=== PATIENT | male | born 1960 | race Caucasian/White ===

== ENCOUNTER 2025-06-23 15:02 | Inpatient (IN) | payer MEDICARE, MEDICAID ==
[~2025-06-23] VITALS: Ht 185.4 cm; Wt 97.0 kg
[2025-06-23 15:00] VITALS: RESP 14; O2SAT 98
[2025-06-23] MEDS ORDERED: LOSA-415 PO (15:48)
[2025-06-23] MEDS ORDERED: CLOP75TA33 PO (15:49)
[2025-06-23] MEDS ORDERED: HYDR25TA5 PO (15:49)
[2025-06-23] MEDS ORDERED: GLIP5TAB23 PO (15:50)
[2025-06-23 17:00] VITALS: BP 166/77; PULSE 63; RESP 14; TEMP 98.2; O2SAT 100
[2025-06-23 18:00] VITALS: BP 166/77; PULSE 63; RESP 15; TEMP 98.2; O2SAT 100
[2025-06-23 20:00] VITALS: RESP 15; O2SAT 100
[2025-06-23] MEDS ORDERED: ondansetron/PF 4mg/2ml inj IV PRN (20:50)
[2025-06-23] MEDS ORDERED: HYDROmorphone inj. 0.5 MG/0.5 ML DISP.SYRIN IV PRN (20:50)
[2025-06-23] MEDS ORDERED: potassium Cl 20 mEq SR tablet PO PRN ×2 (20:50)
[2025-06-23] MEDS ORDERED: mag hydrox/Alum hydrox/simeth 30ml oral suspension PO PRN (20:50)
[2025-06-23] MEDS ORDERED: HYDROmorphone/PF 0.2 MG/ML SYRINGE IV PRN (20:50)
[2025-06-23] MEDS ORDERED: metoclopramide 5 mg/ml inj IV PRN (20:50)
[2025-06-23] MEDS ORDERED: magnesium hydroxide 30ml (MOM) UD suspension PO PRN (20:50)
[2025-06-23] MEDS ORDERED: potassium Cl 40MEQ/1/2NS 520ml 520 ML IV PRN (20:50)
[2025-06-23] MEDS ORDERED: magnesium Cl slow-release 64mg tablet PO PRN (20:50)
[2025-06-23] MEDS ORDERED: magnesium sulf-water 4G/100mL 100 ML IV PRN (20:50)
[2025-06-23] MEDS ORDERED: magnesium sulf-water 2g/50mL 50 ML IV PRN (20:50)
[2025-06-23] MEDS ORDERED: DEXTROSE 15 GM of carb/4 tabs (each vial/BOTTLE has 4 tablets) PO PRN ×2 (21:05)
[2025-06-23] MEDS ORDERED: glucagon, human recombinant 1mg kit SUBCUT PRN (21:05)
[2025-06-23] MEDS ORDERED: dextrose 50%-water 50ml dispensing syringe IV PRN ×2 (21:05)
--- NOTE | 2025-06-23 21:27 | RADIOLOGY REPORT ---
CHEST RADIOGRAPH REASON FOR EXAM: Baseline CXR COMPARISON: None TECHNIQUE: One view of the chest is provided FINDINGS: The cardiomediastinal silhouette is within normal limits for technique. There is no focal airspace disease. There is no significant pleural effusion. No acute bony abnormality is identified. IMPRESSION: No radiographic evidence of acute cardiopulmonary process.
[2025-06-23 21:51] LABS: APTT 29 SECONDS (22-32); INR 1.0 INR
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
[2025-06-23 22:00] VITALS: BP 155/73; PULSE 69; RESP 18; TEMP 97.9; O2SAT 97
[2025-06-23] MEDS: metroNIDAZOLE-Flagyl 500mg/NS 100 ML IV SCH (22:38)
[2025-06-23] MEDS: vancomycin/NS 1 GM ADD-VANTAGE 250 ML IV ONE (22:48)
[2025-06-24] VITALS (7 sets, daily range): BP systolic 157–180; BP diastolic 62–84; PULSE 59–66; RESP 14–16; TEMP 97.7–98.6; O2SAT 96–99
[2025-06-24] MEDS: CefTRIAXone/D5W-Rocephin 1gm 50 ML IV SCH (00:23)
[2025-06-24] MEDS: vancomycin/NS 1 GM ADD-VANTAGE 250 ML IV ONE (00:27)
[2025-06-24 05:44] LABS: CHOL/HDL RATIO 3.8 (0.00-4.99); CREATININE 1.20 MG/DL (0.60-1.10); LDL CHOLESTEROL 47 MG/DL (50-100); TOTAL CARBON DIOXIDE 27.4 MMOL/L (24-32); eCRCL 69 ML/MIN; eGFR 61 ML/MIN
[2025-06-24 05:47] LABS: MEAN PLATELET VOLUME 8.7 FL (7.4-10.4); RED CELL DISTRIBUTION WIDTH 13.5 % (11.5-14.5)
[2025-06-24] MEDS: INSULIN LISPRO 100 UNIT/ML INSULN.PEN MULTI-DOSE SQ SCH (07:00)
[2025-06-24 07:26] LABS: LEUKOCYTE ESTERASE ,URINE NEGATIVE (Neg); NITRITES, URINE NEGATIVE (Neg); OCCULT BLOOD,URINE NEGATIVE (Neg)
[2025-06-24 07:45] LABS: UA COLLECTION TYPE NON-SPECIFIED
[2025-06-24 07:48] LABS: SQUAMOUS EPITHELIAL CELL,UR NONE SEEN /LPF (FEW)
[2025-06-24] MEDS: heparin, porcine 5000 units/ml vial SQ SCH (07:53)
[2025-06-24] MEDS: K and/or MAG REPLACEMENT MC SCH (08:00)
[2025-06-24] MEDS: nicotine 14mg patch - 24hr TD SCH (12:10)
--- NOTE | 2025-06-24 12:30 | PROGRESS NOTE- Residence ---
Progress Note - Resident Providers to CC Resident Creating Document: AMITA REDDY, RES ~ Almanza-Non Protocol Almanza Indications Met/Not Met: F/C Indications Not Met Antibiotic Timeout Antibiotic Ordered?: Yes Subjective Patient was seen and examined at bedside. Patient does not complain any pain or redness or discharge from the right big toe wound. Patient denies any other complaints or concerns at the moment. Patient does not want any surgical intervention for now and requested for IV antibiotics. Patient brought CT angio of lower extremity which showed long segment right SFA occlusion with reconstitution of the below-knee popliteal artery and patient is on Plavix 75 mg p.o. daily. PCP: Dr. Jay, [place] Wound Dr: Dr. Paul Vascular Surgeon: DR. Kennedy , IR Objective Vital Signs Date Time Temp Pulse Resp B/P (MAP) Pulse Ox O2 Delivery O2 Flow Rate FiO2 06/24/25 11:00 98.4 59 16 174/84 (114) 96 Room Air Result Diagram: 06/24/25 0513 06/24/25 0508 Awake , alert and oriented to time,place, person,not in distress HEENT: Atraumatic, normocephalic, PERRLA, EOMI, anicteric sclera ; pink conjunctiva, moist mucos membranes Neck: Trachea midline. Supple, normal range of motion, no JVD, no lymphadenopathy Chest and Respiratory: Equal breath sounds bilaterally, no tachypnea, wheezing, ronchi,rubs .Chest wall is symmetric and without deformity. Cardiac: S1, S2 heard,Regular rate and rhythm, no murmurs ,no gallops, no rubs. Abdomen: Soft, No tenderness, No guarding or rigidity, Larsen's sign negative. normal bowel sounds x4 quadrant, no hepatosplenomegaly MSK: Range of motion of all extremities are normal. There is no joint pain or joint swelling or joint erythema. There is no muscle pain or tenderness or swelling. Extremities: warm, well-perfused, No cyanosis, clubbing, 2+ pulses felt Healing wound with callus on plantar surface of left big toe A 1x1 circular open wound with no active discharge. No erythema or redness surrounding the wound. No obvious bony or tendon exposure outside. Neurological: Mental status exam: alert and consciousness, orientation, memory, speech - Cranial nerve test: Cranial nerves II-XII intact. - Motor system: Normal Nutrition, normal tone, Power 5/5, no involuntary movements - Sensory system: Intact - Reflex testing: Biceps, triceps and knee reflexes 2+ - Cerebellar: Normal Skin: Warm and dry Psychiatry: Affect and mood are normal Coagulation Studies Laboratory Tests Test 06/23/25 21:30 Prothrombin Time 10.3 SECONDS (9.0-12.0) INR International Normalized Ratio 1.0 INR Activated Partial Thromboplast Time 29 SECONDS (22-32) Coagulation Comments Counseling Services Smoking & Tobacco Cessation: 3-10 Minutes Plan Plan Right great toe diabetic ulcer Osteomyelitis Right great toe (1 st proximal and distal phalanges of great toe ) -Imaging at [facility]: on 06/14/25, X-ray right foot consistent with cellulitis, no evidence of osteomyelitis, patient was treated with p.o. Augmentin & doxycycline, failed outpatient management and patient returned to [facility] on 06/23/25, underwent MRI which showed osteomyelitis of 1st proximal and distal phalanges of right great toe. Preliminary wound culture shows Enterobacter cloacae and mixed preeti including coagulase-negative staph and Corynebacterium species at [facility] -no leukocytes, lactate and procalcitonin are normal -mildly elevated ESR of 34 -Continue IV vancomycin 1 g q.12h, IV ceftriaxone 1 g Q 24 H and IV Flagyl 500 mg q.12h -Follow up on wound and blood cultures -Wound care was requested -explained the patient about risks and complications of osteomyelitis with comorbidities (possibility of sepsis, osteomyelitis progression to entire leg, risk of total leg amputation, risk of ), patient does not want any surgical interventions for now and requested for long-term IV antibiotics. -Dr. Heaton, ID was consulted, awaiting recommendations(possibly on Thursday) Acute kidney injury Current creatinine 1.2, BUN is 24, B/C is 20, EGFR of 61 Patient received 1L IV NS bolus at [facility] IV NS @ 100 mL/hr Avoid nephrotoxic drugs Follow up on urine lytes Monitor BMP levels PAD s/p left angioplasty in January 2025 Right SFA occlusion Tobacco use disorder Patient is active smoker (pt had cut down smoking to 5-6 cigarettes/day from 1 pack of cigarettes/day) which further impairs wound healing and vascular status Counseled on smoking cessation and advised nicotine patch. LDL is 47 Continue home medication Plavix [address] angio of lower extremity which showed long segment right SFA occlusion . We will consulted Dr. Jiang tomorrow morning Type 2 diabetes mellitus with Peripheral neuropathy Patient takes glipizide at home HB A1c is 6.9 Glycemic control suboptimal, maintain blood glucose 140-180 mg/dL Patient feels drowsy with gabapentin, So does not want any medication for peripheral neuropathy. 75 gms Carb controlled diet Lantus 10 units HS daily Hyperglycemia/hypoglycemia protocol Hypertension Blood pressure is 154/62 Continue home medication hydrochlorothiazide 25 mg and losartan 50 mg p.o. daily History of bipolar disorder Patient states that he does not have any episodes from many years & not taking any medications at home. Code status: DNR/DNI DVT prophylaxis : Heparin Nutrition: Carb Controlled diet Physical therapy: ordered Line/tube: PIV Analgesia/sedation: Tylenol 325 q.6h PRN Disposition: Continue IV antibiotics, follow Infectious Disease recommendations. Resident attestation The above note has been reviewed and supervised by a senior resident PGY2/PGY3 Patient was seen, examined and discussed with the attending physician, Dr. MARK ANTHONY Reddy MD Internal Medicine Resident, PGY 1 Date of Service: Jun 24, 2025 Billing Provider: ARACELI HOPSON MD Common Visit Codes: [id number] INP/OBS CARE(HIGH) AMITA REDDY, RES Jun 24, 2025 12:30 ARACELI HOPSON MD Jul 04, 2025 18:28
[2025-06-24] MEDS: vancomycin/NS 1 GM ADD-VANTAGE 250 ML IV SCH (13:08)
[2025-06-24] MEDS: normal saline 1000ml 1,000 ML IV SCH (15:32)
[2025-06-24] MEDS: hydrALAZINE 20mg/ml inj. IV ONE (17:06)
[2025-06-24 17:37] LABS: CREATININE,URINE RANDOM 61.0 MG/DL; UA UREA RANDOM 463.0 MG/DL; URINE AMPHETAMINE SCREEN NEGATIVE (Neg); URINE BARBITUATE SCREEN NEGATIVE (Neg); URINE BENZODIAZEPINES SCREEN NEGATIVE (Neg); URINE CANNABINOID SCREEN NEGATIVE (Neg); URINE COCAINE SCREEN NEGATIVE (Neg); URINE METHADONE SCREEN NEGATIVE (Neg); URINE OPIATE SCREEN NEGATIVE (Neg); URINE PHENCYCLIDINE SCREEN NEGATIVE (Neg)
[2025-06-24 17:41] LABS: OSMOLALITY UA 493.0 MOSM/K (50-1400)
[2025-06-24] MEDS ORDERED: insulin glargine (Lantus) pen - multi-dose SQ SCH (21:00)
[2025-06-24] MEDS: insulin glargine (Lantus) pen - multi-dose SQ SCH (21:33)
[2025-06-25 06:00] VITALS: BP 175/80; PULSE 68; RESP 14; TEMP 98.1; O2SAT 97
[2025-06-25 06:02] LABS: MEAN PLATELET VOLUME 8.9 FL (7.4-10.4); RED CELL DISTRIBUTION WIDTH 13.2 % (11.5-14.5)
[2025-06-25 06:04] LABS: CREATININE 0.97 MG/DL (0.60-1.10); TOTAL CARBON DIOXIDE 26.6 MMOL/L (24-32); eCRCL 86 ML/MIN; eGFR 78 ML/MIN
[2025-06-25 08:00] VITALS: RESP 18; O2SAT 98
[2025-06-25 10:00] VITALS: BP 157/64; PULSE 65; RESP 15; TEMP 97.6; O2SAT 98
[2025-06-25] MEDS: VANCOMYCIN LEVEL IV ONE (12:30)
[2025-06-25] MEDS ORDERED: iohexol 350 MG/ML 50ML vial IV ONE (13:09)
--- NOTE | 2025-06-25 13:11 | PROGRESS NOTE ---
Progress Note ID Providers to CC ~ Progress Note Progress Note: pt seen and examined-needs further workup KAYLAN MUNSON MD Jun 25, 2025 13:11
[2025-06-25] MEDS ORDERED: metoprolol tartrate 1mg/ml inj IV PRN (13:15)
[2025-06-25] MEDS ORDERED: aminophylline 250mg/10ml inj. IV PRN (13:15)
[2025-06-25] MEDS ORDERED: dextrose 50%-water 50ml dispensing syringe IV PRN ×2 (15:30)
[2025-06-25] MEDS ORDERED: glucagon, human recombinant 1mg kit SUBCUT PRN (15:30)
[2025-06-25] MEDS ORDERED: DEXTROSE 15 GM of carb/4 tabs (each vial/BOTTLE has 4 tablets) PO PRN ×2 (15:30)
--- NOTE | 2025-06-25 15:46 | PROGRESS NOTE- Residence ---
Progress Note - Resident Providers to CC Resident Creating Document: AMITA REDDY, RES ~ Almanza-Non Protocol Almanza Indications Met/Not Met: F/C Indications Not Met Antibiotic Timeout Antibiotic Ordered?: Yes Subjective Patient was seen and examined at bedside. Patient does not complain any pain or redness or discharge from the right big toe wound. Patient denies any other complaints or concerns at the moment. Patient does not want any surgical intervention for osteomyelitis and requested for IV antibiotics. Patient brought CT angio of lower extremity which showed long segment right SFA occlusion with reconstitution of the below-knee popliteal artery and patient is on Plavix [address] Jiang was consulted for bypass graft of right SFA occlusion. PCP: Dr. Jay, Fabian Wound Dr: Dr. Paul Vascular Surgeon: DR. Kennedy , IR Objective Vital Signs Date Time Temp Pulse Resp B/P (MAP) Pulse Ox O2 Delivery O2 Flow Rate FiO2 06/25/25 10:00 97.6 65 15 157/64 (95) 98 Room Air Result Diagram: 06/25/25 0440 06/25/25 1308 Awake , alert and oriented to time,place, person,not in distress HEENT: Atraumatic, normocephalic, PERRLA, EOMI, anicteric sclera ; pink conjunctiva, moist mucos membranes Neck: Trachea midline. Supple, normal range of motion, no JVD, no lymphadenopathy Chest and Respiratory: Equal breath sounds bilaterally, no tachypnea, wheezing, ronchi,rubs .Chest wall is symmetric and without deformity. Cardiac: S1, S2 heard,Regular rate and rhythm, no murmurs ,no gallops, no rubs. Abdomen: Soft, No tenderness, No guarding or rigidity, Larsen's sign negative. normal bowel sounds x4 quadrant, no hepatosplenomegaly MSK: Range of motion of all extremities are normal. There is no joint pain or joint swelling or joint erythema. There is no muscle pain or tenderness or swelling. Extremities: warm, well-perfused, No cyanosis, clubbing, 2+ pulses felt Healing wound with callus on plantar surface of left big toe A 1x1 circular open wound with no active discharge. No erythema or redness surrounding the wound. No obvious bony or tendon exposure outside. Neurological: Mental status exam: alert and consciousness, orientation, memory, speech - Cranial nerve test: Cranial nerves II-XII intact. - Motor system: Normal Nutrition, normal tone, Power 5/5, no involuntary movements - Sensory system: Intact - Reflex testing: Biceps, triceps and knee reflexes 2+ - Cerebellar: Normal Skin: Warm and dry Psychiatry: Affect and mood are normal Coagulation Studies Laboratory Tests Test 06/23/25 21:30 Prothrombin Time 10.3 SECONDS (9.0-12.0) INR International Normalized Ratio 1.0 INR Activated Partial Thromboplast Time 29 SECONDS (22-32) Coagulation Comments Plan Plan Right great toe diabetic ulcer Osteomyelitis Right great toe (1 st proximal and distal phalanges of great toe ) -Imaging at [facility]: on 06/14/25, X-ray right foot consistent with cellulitis, no evidence of osteomyelitis, patient was treated with p.o. Augmentin & doxycycline, failed outpatient management and patient returned to [facility] on 06/23/25, underwent MRI which showed osteomyelitis of 1st proximal and distal phalanges of right great toe. Preliminary wound culture shows Enterobacter cloacae and mixed preeti including coagulase-negative staph and Corynebacterium species at [facility] -no leukocytes, lactate and procalcitonin are normal -mildly elevated ESR of 34 -explained the patient about risks and complications of osteomyelitis with comorbidities (possibility of sepsis, osteomyelitis progression to entire leg, risk of total leg amputation, risk of ), patient does not want any surgical interventions for now and requested for long-term IV antibiotics. -Continue IV vancomycin 1 g q.12h, IV ceftriaxone 1 g Q 24 H and IV Flagyl 500 mg q.12h -Follow up on wound and blood cultures -Dr. Heaton, ID was consulted, awaiting recommendations(possibly on Thursday, remind Dr. Heaton) -Wound care was requested, however not available until Thursday, follow up on Thursday PAD s/p left angioplasty in January 2025 Right SFA occlusion Tobacco use disorder Patient is active smoker (pt had cut down smoking to 5-6 cigarettes/day from 1 pack of cigarettes/day) which further impairs wound healing and vascular status Counseled on smoking cessation and advised nicotine patch. LDL is 47 Continue home medication Plavix [address] angio of lower extremity which showed long segment right SFA occlusion . Dr. Jiang was cunsulted and recommended: Arterial ultrasound with LEISA Venous ultrasound Lexiscan Echocardiogram Type 2 diabetes mellitus with Peripheral neuropathy Patient takes glipizide at home HB A1c is 6.9 Glycemic control suboptimal, maintain blood glucose 140-180 mg/dL Patient feels drowsy with gabapentin, So does not want any medication for peripheral neuropathy. 60 gms Carb controlled diet Lantus 10 units HS daily and Lispro 4 units TID with meals Hyperglycemia/hypoglycemia protocol Acute kidney injury Likely prerenal from dehydration leading to vasomotor nephropathy Renal parameters trended down to normal Fena is 1.4, urine lytes suggest prerenal Patient received 1L IV NS bolus at [facility] IV NS @ 100 mL/hr Avoid nephrotoxic drugs Monitor BMP levels Hypertension Blood pressure is 175/80 today Increased dose of losartan from 50 to 100 mg p.o. daily. Titrate as needed Continue home medication hydrochlorothiazide 25 mg p.o. daily Thyroid nodule TSH is in normal limit 2.43 Patient states that he has outpatient appointment for thyroid nodule biopsy in next month History of bipolar disorder Patient states that he does not have any episodes from many years & not taking any medications at home. Code status: DNR/DNI DVT prophylaxis : Heparin Nutrition: Carb Controlled diet Physical therapy: ordered Line/tube: PIV Analgesia/sedation: Tylenol 325 q.6h PRN Disposition: Continue IV antibiotics, follow Infectious Disease recommendations and follow Dr. Jiang recommendations for right SFA stenosis. Resident attestation The above note has been reviewed and supervised by a senior resident PGY2/PGY3 Patient was seen, examined and discussed with the attending physician, Dr. MARK ANTHONY Reddy MD Internal Medicine Resident, PGY 1 Date of Service: Jun 25, 2025 Billing Provider: ARACELI HOPSON MD Common Visit Codes: [id number] INP/OBS CARE(HIGH) AMITA REDDY, RES Jun 25, 2025 15:45 ARACELI HOPSON MD Jul 04, 2025 18:28
--- NOTE | 2025-06-25 16:55 | VASCULAR REPORT ---
ULTRASOUND VENOUS MAPPING LOWER EXTREMITIES INDICATION: Preoperative venous mapping. COMPARISON: None TECHNIQUE: Duplex Doppler evaluation of the superficial veins of the right and left lower extremities was performed including color Doppler and spectral/pulsed waveform analysis. FINDINGS: Measurements of the lower extremity greater saphenous veins are provided below. RIGHT GREAT SAPHENOUS VEIN (GSV): 2.6 mm at the proximal thigh, normal compressibility with no mural thickening or thrombosis. 1.6 mm at the mid thigh, normal compressibility with no mural thickening or thrombosis. 1.8 mm at the distal thigh, normal compressibility with no mural thickening or thrombosis. 1.5 mm at the proximal calf, normal compressibility with no mural thickening or thrombosis. 2.2 mm at the mid calf, normal compressibility with no mural thickening or thrombosis. 2.5 mm at the distal calf, normal compressibility with no mural thickening or thrombosis. The GSV is patent on duplex Doppler evaluation. LEFT GREAT SAPHENOUS VEIN (GSV): 2.3 mm at the proximal thigh, normal compressibility with no mural thickening or thrombosis. 1.4 mm at the mid thigh, normal compressibility with no mural thickening or thrombosis. 2.1 mm at the distal thigh, normal compressibility with no mural thickening or thrombosis. 1.4 mm at the proximal calf, normal compressibility with no mural thickening or thrombosis. 1.3 mm at the mid calf, normal compressibility with no mural thickening or thrombosis. 1.3 mm at the distal calf, normal compressibility with no mural thickening or thrombosis. The GSV is patent on duplex Doppler evaluation. IMPRESSION: Lower extremity superficial venous mapping as detailed above.
[2025-06-25] MEDS: INSULIN LISPRO 100 UNIT/ML INSULN.PEN MULTI-DOSE SQ SCH ×2 (17:00→17:18)
--- NOTE | 2025-06-25 17:35 | RADIOLOGY REPORT ---
CTA ABDOMINAL AORTA WITH BILATERAL LOWER EXTREMITY RUNOFF WITH CONTRAST INDICATION: nonhealing wound COMPARISON: None TECHNIQUE: Axial CT images of the abdomen and bilateral lower extremities are obtained at 1 mm collimation in the early arterial phase after intravenous contrast administration. Coronal maximum intensity projection (MIP) images are provided. 3-D images of the abdominal aorta and bilateral lower extremity arteries were constructed on an independent workstation. Radiation optimization: All CT scans at this facility use at least one of these dose optimization techniques: Automated exposure control mA and/or kV adjustment per patient size (includes targeted exams where dose is matched to clinical indication) or iterative reconstruction. RADIATION DOSE: CTDI: 11 mGy DLP: 2070 mGy-cm FINDINGS: AORTA: There is no abdominal aortic aneurysm or dissection. The celiac, SMA, and TING are widely patent. The renal arteries are patent there are 2 left renal arteries. There is approximately 40% narrowing at the origin of the more superior left renal artery with soft plaque. There is moderate soft plaque in t he lower abdominal aorta. RIGHT LOWER EXTREMITY RUN-OFF: Common iliac: Patent without hemodynamically significant stenosis. External iliac: Patent without hemodynamically significant stenosis. Internal iliac: Patent without hemodynamically significant stenosis. TEAROOM HOSTESS: Patent without hemodynamically significant stenosis. SFA: Occluded near the origin. Profunda Femoris: Patent without hemodynamically significant stenosis. Popliteal: Reconstituted by profunda collaterals while using focused No aneurysm or abnormal medial deviation is noted. Anterior Tibial: Patent without hemodynamically significant stenosis. Tibioperoneal Trunk: Patent without hemodynamically significant stenosis. Peroneal: Patent without hemodynamically significant stenosis. Posterior Tibial: Occluded near the origin. Dorsalis Pedis: Patent without hemodynamically significant stenosis. The common and lateral plantar arteries appear patent and are perfused by peroneal and dorsal pedal collaterals. LEFT LOWER EXTREMITY RUN-OFF: Common iliac: Patent without hemodynamically significant stenosis. External iliac: Patent without hemodynamically significant stenosis. Internal iliac: Patent without hemodynamically significant stenosis. TEAROOM HOSTESS: Patent without hemodynamically significant stenosis. SFA: There is mild and moderate disease throughout the length of the artery. There is approximately 70% focal stenosis at the level of mid thigh. Profunda Femoris: Patent without hemodynamically significant stenosis. Popliteal: Patent without hemodynamically significant stenosis. No aneurysm or abnormal medial deviation is noted. Anterior Tibial: Patent without hemodynamically significant stenosis. Tibioperoneal Trunk: Patent without hemodynamically significant stenosis. Peroneal: Patent without hemodynamically significant stenosis. Posterior Tibial: Occluded at the level of mid calf. Reconstituted below the ankle by peroneal collaterals. Dorsalis Pedis: Patent without hemodynamically significant stenosis. The common and lateral plantar arteries are patent. ADDITIONAL FINDINGS: There is mild dependent atelectasis in the visualized lower lobes of the lungs. There is no pleural effusion. There is no pericardial effusion. The spleen is within normal limits for size. The liver is enlarged at 20.2 cm in length. The portal vein is patent. No calcified gallstone is identified. The pancreas appears grossly normal. The adrenal glands appear normal. The kidneys enhance symmetrically. There is an indeterminate 1.9 cm hypodense lesion at the superior pole of the right kidney (25 Hounsfield units). There is no hydronephrosis of either kidney. There is no pathologic lymphadenopathy in the abdomen or pelvis by size criteria. There are several subcentimeter lymph nodes in the retrope ritoneum. The urinary bladder appears thick-walled although it is not well distended. The prostate is enlarged. The colonic stool burden is small. The appendix is normal. There is no distention of the small bowel. No free fluid is identified in the abdomen or pelvis. No acute osseous abnormality is identified. There are degenerative changes throughout the visualized spine. IMPRESSION: Occluded right SFA. The right popliteal artery is reconstituted by profunda collaterals. The right posterior tibial artery is occluded. Approximately 70% focal stenosis in the left SFA at the level of mid thigh. Occluded left posterior tibial artery at the level of mid calf. The left OUTBOARD MOTOR ASSEMBLER is reconstituted below the ankle via peroneal collaterals. Indeterminate 1.9 cm hypodense lesion of the superior pole of the right kidney (25 Hounsfield units). Recommend renal ultrasound for further evaluation. Hepatomegaly at 20.2 cm in length.
--- NOTE | 2025-06-25 17:47 | CARDIOLOGY REPORT ---
APPROVED REPORT EXAM: Comprehensive 2D, Doppler, and color-flow Echocardiogram. Patient Location: [facility]– [place]3 B Heart Rate: 50's bpm Rhythm: SINUS BRADYCARDIA Indications PRE OP DIABETES MELLITUS 2 HYPERTENSION Special Effects Designer: NONE Previous echo: NONE 2D Dimensions RVDd 3.9 cm IVSd 1.2 (0.7-1.1cm) LVDd 4.5 cm PWd 1.3 (0.7-1.1cm) IVSs 1.4 (0.8-1.2cm) LVDs 3.2 (2.5-4.0cm) PWs 1.4 (0.8-1.2cm) LVOT Diameter 2.07 (1.8-2.4cm) LVEF(%) 55.5 (>50%) Ao Asc Diam. 3.44 cm IVC 14.47 mm FS (%) 28.7 % SV 51.3 ml CO 3.2 L/min M-Mode Dimensions Left Atrium(MM) 4.50 (2.5-4.0cm) Aortic Root 3.54 (2.2-3.7cm) Aortic Cusp Exc 2.06 (1.5-2.0cm) MV EPSS 0.7 (<0.5cm) Aortic Valve AoV Peak Zoran. 125.9 cm/s AoV VTI 25.0 cm AO Peak GR. 6.3 mmHg AO Mean GR. 3 mmHg LVOT VTI 22.10 cm LVOT Peak Zoran. 108.3 cm/s ROMAIN(VTI)/BSA 2.98 cm2/m2 ROMAIN (VTI) 2.98 cm2 AV DI 0.88 % Mitral Valve MV E Velocity 89.1 cm/s MV Peak Gr. 3 mmHg MV DECEL TIME 244 ms MV A Velocity 96.1 cm/s MV PHT 72 ms E/A Ratio 0.9 MVA (PHT) 3.06 cm2 MV VMax 90.2 cm/s TDI Lateral E' P. V 6.87 cm/s E/Lateral E' 13.0 Pulmonary Vein S1 Velocity 69.5 cm/s D2 Velocity 45.7 cm/s PVa Velocity 34.9 cm/s PVa Duration 144 msec LEFT VENTRICLE Normal LV size and wall thickness. Overall systolic function is low normal. LVEF is 55-60%. RIGHT VENTRICLE RV is mildly dilated with normal function. ATRIA Left atrium is mildly dilated. AORTIC VALVE Probable trileaflet AV appears sclerotic without stenosis. No insufficiency. MITRAL VALVE Mild MV annular calcification without stenosis. Mild regurgitation. TRICUSPID VALVE TV appears structurally normal with trace regurgitation. PULMONIC VALVE Pulmonic valve is grossly normal in structure. GREAT VESSELS The aortic root is normal in size. IVC is normal in size and collapses greater than 50% with inspiration. PERICARDIUM Normal pericardium. No effusion. Other Information Study Quality: Adequate Conclusion Normal LV size and wall thickness. Overall systolic function is low normal. LVEF is 55-60%. RV is mildly dilated with normal function. Left atrium is mildly dilated. Probable trileaflet AV appears sclerotic without stenosis. No insufficiency. Mild MV annular calcification without stenosis. Mild regurgitation. TV appears structurally normal with trace regurgitation. Normal pericardium. No effusion.
[2025-06-25 18:00] VITALS: BP 141/64; PULSE 61; RESP 18; TEMP 97.8; O2SAT 100
--- NOTE | 2025-06-25 19:57 | VASCULAR REPORT ---
SEGMENTAL PRESSURES/ANKLE-BRACHIAL INDEX REASON FOR EXAMINATION: Bilateral lower extremity pain. Left lower extremity nonhealing wound. Angioplasty performed on left lower extremity 01/2025. COMPARISON: VASC VL VENOUS on DOS: 06/25/25 TECHNIQUE: Patient evaluation includes blood pressures, ankle-brachial indices, and segmental doppler waveform analysis at rest and post exercise when applicable. Toe brachial indices (TBI) are taken when necessary. FINDINGS: SEGMENTAL BLOOD PRESSURES ARE FOLLOWS: RIGHT: Brachial: Could not the obtained due to an IV in the right upper extremity. Posterior tibial: 78 mm Hg Dorsalis pedis: 82 mm Hg The right LEISA is depressed with a value of 0.56. LEFT: Brachial: 146 mm Hg. Posterior tibial: 120 mm Hg Dorsalis pedis: 124 mm Hg The left LEISA is depressed with a value of 0.84. IMPRESSION: Moderately depressed LEISA bilaterally, right worse than left. Note: Non-compressible/calcified vessels such as seen in the diabetic/ESRD population render falsely elevated and inaccurate segmental pressures. Correlation with doppler Ultrasound evaluation of the lower extremities is recommended in this population.
--- NOTE | 2025-06-25 20:04 | VASCULAR REPORT ---
BILATERAL LOWER EXTREMITY ARTERIAL DUPLEX ULTRASOUND STUDY: REASON FOR EXAM: Bilateral lower extremity pain. Left lower extremity nonhealing wound. Left lower extremity angioplasty 01/2025. TECHNIQUE: The full lengths of the arterial segments were evaluated with color- flow Doppler ultrasound. Suspected abnormalities were evaluated with chacon scale ultrasound. Regional Planner spectral Doppler waveforms, with velocity measurements were obtained. Spectral waveforms with velocity measurements were obtained 2 to 4 cm central to any areas of significant stenosis. Common femoral, superficial femoral, popliteal, posterior tibial, anterior tibial, and dorsal pedal arteries were evaluated. FINDINGS: Right: There is diffuse atherosclerotic plaque throughout the right lower extremity. The common femoral artery waveform is multiphasic with a brisk upstroke. There is increased velocity in the profunda femoris artery. The superficial femoral artery is occluded in the mid to upper thigh. There is monophasic distal reconstitution of the SFA. There is monophasic flow in the popliteal artery. There is increased velocity in the distal popliteal artery consistent with greater than 50% luminal narrowing. There is monophasic flow in the anterior tibial, posterior tibial, peroneal, and dorsal pedal arteries. Left: There is diffuse atherosclerotic plaque throughout the left lower extremity. The common femoral artery waveform is multiphasic with a brisk upstroke. The superficial femoral and popliteal arteries are patent with multiphasic waveforms. There is increased velocity in the distal SFA corresponding to greater than 50% luminal narrowing. There is monophasic flow in the posterior tibial, peroneal, anterior tibial, and dorsal pedal arteries. IMPRESSION: Occlusion of the right SFA in the mid to upper thigh with reconstitution in the distal thigh. Monophasic flow in the right lower extremity below the knee. Likely greater than 50% stenosis in the right profunda femoris artery. Greater than 50% stenosis in the distal left SFA. Monophasic flow in the left lower extremity below the knee.
[2025-06-25 22:00] VITALS: BP 152/66; PULSE 66; RESP 13; TEMP 98.6; O2SAT 94
[2025-06-26] VITALS (17 sets, daily range): BP systolic 115–180; BP diastolic 55–79; PULSE 54–77; RESP 12–17; TEMP 97.9–99.3; O2SAT 97–100
[2025-06-26 06:20] LABS: MEAN PLATELET VOLUME 9.1 FL (7.4-10.4); RED CELL DISTRIBUTION WIDTH 13.4 % (11.5-14.5)
[2025-06-26 06:40] LABS: CREATININE 1.03 MG/DL (0.60-1.10); TOTAL CARBON DIOXIDE 25.3 MMOL/L (24-32); eCRCL 81 ML/MIN; eGFR 72 ML/MIN
[2025-06-26] MEDS: regadenoson 0.4mg/5ml syringe IV PRN (11:48)
--- NOTE | 2025-06-26 13:06 | RADIOLOGY REPORT ---
Reason for study/Clinical History: preop clearance Hx of HTN, DM Comparison Study: None Myocardial Perfusion Study with SPECT Technique: The patient received an intravenous injection of 8.4 mCi of technetium-99m Sestamibi while at rest. After a short delay, SPECT tomographic images of the heart were obtained. The patient then went to the stress lab where they received an intravenous Lexiscan utilizing standard protocol. 36 mCi of technetium-99m Sestamibi was injected intravenously immediately after the start of the infusion. Gated SPECT tomographic images of the heart were acquired and processed. Findings: Rotating planar images show no significant attenuation artifact. The left ventricular size is within normal limits. Non reversible defect of the inferior wall. Gated portion of the study shows normal wall motion and myocardial thickening. The left ventricular ejection fraction is 43 %. (normal greater than 50%) Impression: Non reversible defect in the inferior wall. This may represent chronic infarct versus artifact. Clinical correlation advised. No reversible findings to suggest acute ischemia. Left ventricular ejection fraction is 43%.
[2025-06-26] MEDS ORDERED: heparin 10,000 units/1 ML INJ ONE (14:30)
[2025-06-26] MEDS ORDERED: protamine sulfate 10mg/ml inj. ONE (14:41)
[2025-06-26] MEDS ORDERED: iohexol 300mg/ml 100ml inj. ONE (14:41)
[2025-06-26] MEDS ORDERED: NORepinephrine 8mg/ 250ml NS 250 ML IV ONE (14:41)
--- NOTE | 2025-06-26 15:17 | PROGRESS NOTE ---
Progress Note ID Providers to CC ~ Progress Note Progress Note: discussed procedure including risks/benefits/alternatives KAYLAN MUNSON MD Jun 26, 2025 15:17
--- NOTE | 2025-06-26 15:39 | PROGRESS NOTE- Residence ---
Progress Note - Resident Providers to CC Resident Creating Document: DANIELA VARELA RES ~ Antibiotic Timeout Antibiotic Ordered?: Yes Subjective Patient was seen and examined bedside. Dressing is in place in right great toe without soakage, or drainage. He does not complain of any pain and is walking around. He will be getting surgery today by Dr. Jiang for right occlusion of SFA. PCP: Fabian Condon Wound Dr: Dr. Paul Vascular Surgeon: DR. Kennedy , IR Objective Vital Signs Date Time Temp Pulse Resp B/P (MAP) Pulse Ox O2 Delivery O2 Flow Rate FiO2 06/26/25 14:07 64 16 98 06/26/25 12:10 141/61 Room Air 0.0 06/26/25 10:00 98.3 Result Diagram: 06/26/25 0459 06/26/25 0459 Awake , alert, and oriented x4, resting comfortably in the bed, in no acute distress HEENT: Atraumatic, normocephalic, EOMI, anicteric sclera ; pink conjunctiva, moist mucous membranes Neck: Trachea midline. Supple, full range of motion, no JVD Cardiac: Regular rhythm, regular rate with no murmurs all over the precordium. Respiratory: Equal breath sounds bilaterally, no tachypnea, no wheezing ,rub or rales, Chest wall is symmetric and without deformity. Gastrointestinal: Abdomen symmetric, non-distended, soft, non-tender, normal bowel sounds, no hepatosplenomegaly Musculoskeletal: Dressing in place over right great toe with no soakage or drainage with normal surrounding skin, healing wound with callus present over plantar surface of left big toe, 2+ pulses felt, No pedal edema, no cyanosis Neurological: Speech is clear, alert, and oriented x 4. No motor or sensory deficit, deep tendon reflexes normal, cerebellar intact. Cranial nerves II-XII intact. Skin: Warm and dry Coagulation Studies Laboratory Tests Test 06/23/25 21:30 Prothrombin Time 10.3 SECONDS (9.0-12.0) INR International Normalized Ratio 1.0 INR Activated Partial Thromboplast Time 29 SECONDS (22-32) Coagulation Comments Assessment Assessment 65-year-old male with history of type 2 diabetes mellitus, peripheral neuropathy, hyperlipidemia, PAD s/p left angioplasty was transferred from [facility] for management of right great toe osteomyelitis, and he is getting surgery today for right SFA occlusion by Dr. Jiang Plan Plan Right great toe osteomyelitis (1 st proximal and distal phalanges of great toe) Right great toe diabetic ulcer -Imaging at [facility] on 06/14/25: X-ray right foot consistent with cellulitis, no evidence of osteomyelitis, patient was treated with p.o. Augmentin & doxycycline, failed outpatient management and patient returned to [facility] on 06/23/25, underwent MRI which showed osteomyelitis of 1st proximal and distal phalanges of right great toe. -prelim wound cultures show no WBC, and no organisms -follow up final wound cultures and blood cultures -Dr. Heaton, ID consulted, awaiting recommendations, as patient does not want any surgical interventions for osteomyelitis. He understands the risks and complications. -inflammatory markers are normal -Continue IV vancomycin 1 g q.12h, IV ceftriaxone 1 g Q 24 H and IV Flagyl 500 mg q.12h -Wound care was consulted PAD s/p left angioplasty in January 2025 Right SFA occlusion Tobacco use disorder Patient is active smoker (pt had cut down smoking to 5-6 cigarettes/day from 1 pack of cigarettes/day) LDL is 47 Started atorvastatin 20 mg Continue home medication Plavix [address] angio of lower extremity which showed long segment right SFA occlusion . Dr. Jiang was consulted and recommended arterial and venous US, echo and stress test Arterial ultrasound shows occlusion of the right SFA in the mid to upper thigh with reconstitution in the distal thigh, likely greater than 50% stenosis in the right profunda femoris artery, greater than 50% stenosis in the distal left SFA. Venous ultrasound shows moderately depressed LEISA bilaterally, right worse than left Right LEISA 0.56 Left LEISA 0.84 Stress test shows no reversible ischemia. Echo shows LVEF of 55-60%, mildly dilated RV and LA, mild mitral regurgitation and trace tricuspid regurgitation Patient we will be getting surgery by Dr. Jiang today for right SFA occlusion Type 2 diabetes mellitus with Peripheral neuropathy Patient takes glipizide at home HB A1c is 6.9 Blood glucose goal of 140-180 Patient feels drowsy with gabapentin, So does not want any medication for peripheral neuropathy. 75 gms Carb controlled diet Continue Lantus 10 units HS daily and Lispro 4 units TID with meals On Hyperglycemia/hypoglycemia protocol Acute kidney injury Likely prerenal from dehydration leading to vasomotor nephropathy Renal parameters trended down to normal Fena is 1.4, urine lytes suggest prerenal IV NS @ 100 mL/hr Avoid nephrotoxic drugs Monitor BMP levels Hypertension Blood pressure 141/61 Continue losartan 100 mg daily Continue home medication hydrochlorothiazide 25 mg p.o. daily Thyroid nodule TSH is in normal limit 2.43 Patient has outpatient appointment for thyroid nodule biopsy next month History of bipolar disorder Patient states that he does not have any episodes from many years and he is not taking any medications at home. Code status: DNR/DNI DVT prophylaxis : Heparin Nutrition: Carb Controlled diet Physical therapy: ordered Line/tube: PIV Analgesia/sedation: Tylenol 325 q.6h PRN Disposition: Continue IV antibiotics for osteomyelitis, awaiting Dr. Heaton, ID recommendations. Patient is getting surgery today for right SFA occlusion by Dr. Jiang, PT eval post surgery and DC plan Resident MD attestation: The patient note has been reviewed and supervised by senior residents PGY-2/ PGY-3. Patient was seen, examined and discussed with attending physician, Dr. Tani Varela MD Internal Medicine resident, PGY-1 Date of Service: Jun 26, 2025 Billing Provider: ARACELI HOPSON MD Common Visit Codes: [id number] INP/OBS CARE(HIGH) DANIELA VARELA, RES Jun 26, 2025 15:39 ARACELI HOPSON MD Jul 04, 2025 18:28
[2025-06-26] MEDS ORDERED: HYDR25TA4 PO (16:07)
[2025-06-26] MEDS ORDERED: LOSA50TA64 PO (16:08)
[2025-06-26] MEDS ORDERED: midazolam 1 mg/ML 2ml injection ONE (16:35)
[2025-06-26] MEDS ORDERED: fentaNYL /PF 50mcg/ml 5ml ampule ONE (17:04)
[2025-06-26] MEDS ORDERED: hydrALAZINE 20mg/ml inj. IV PRN (17:10)
[2025-06-26] MEDS ORDERED: HYDROmorphone/PF 0.2 MG/ML SYRINGE IV PRN (17:10)
[2025-06-26] MEDS ORDERED: labetalol 20mg/4ml (5mg/ml) syringe IV PRN (17:10)
[2025-06-26] MEDS: ringers solution, lacted 1,000 ML IV SCH (17:10)
[2025-06-26] MEDS ORDERED: acetaminophen 1,000mg/100ml IV 100 ML IV PRN (17:10)
[2025-06-26] MEDS ORDERED: ondansetron/PF 4mg/2ml inj IV PRN ×2 (17:10→19:35)
[2025-06-26] MEDS ORDERED: morphine 4 MG/ML inj SYRINge IV PRN (17:10)
[2025-06-26] MEDS ORDERED: propofol inj 20 ML IV ONE (17:37)
[2025-06-26] MEDS ORDERED: rocuronium 10mg/ml inj IV ONE ×2 (17:37)
[2025-06-26] MEDS ORDERED: LIDOcaine 1%/PF 5ML 10 MG/ML VIAL ONE (17:37)
[2025-06-26] MEDS ORDERED: dexamethasone sod phosphate 4mg/ml inj. ONE (17:37)
[2025-06-26] MEDS ORDERED: ondansetron/PF 4mg/2ml inj ONE (17:37)
[2025-06-26] MEDS ORDERED: 0.9 % SODIUM CHLORIDE 10 ML VIAL ONE (17:37)
[2025-06-26] MEDS ORDERED: LIDOcaine 1% (10mg/ml) 2ml vial ONE (17:37)
[2025-06-26] MEDS ORDERED: ePHEDrine 50MG/ML INJ. ONE (17:37)
[2025-06-26] MEDS ORDERED: albumin (Human) 5% 250ml 250 ML IV ONE (17:44)
[2025-06-26] MEDS ORDERED: heparin 1,000unit/ml 10ml vial 10 ML ONE (18:08)
[2025-06-26] MEDS ORDERED: morphine 10mg/ml inj. ONE (19:10)
--- NOTE | 2025-06-26 19:31 | OPERATIVE REPORT ---
Operative Report Providers to CC ~ Date of Procedure: Jun 26, 2025 Pre-Operative Diagnosis: nonhealing wound right foot with multilevel pad Post-Operative Diagnosis SAME as PRE-Op Procedure Performed right fem above the knee pop with 8 mm goretex/right supervisor final endarterectomy Surgeon: terence mills Anesthesiologist: Antonia Dang Type of Anesthesia: General Findings: supervisor final plaque Estimated Blood Loss: 300 ml Specimen Removed: supervisor final plaque KAYLAN MUNSON MD Jun 26, 2025 19:31
[2025-06-26] MEDS ORDERED: PCA WASTE DOCUMENTATION 1 MG ML MC SCH (19:35)
[2025-06-26] MEDS ORDERED: labetalol 20mg/4ml (5mg/ml) syringe IV ONE (19:38)
--- NOTE | 2025-06-26 20:16 | RADIOLOGY REPORT ---
EXAM: DI CHEST,SINGLE VIEW TECHNIQUE: Single frontal chest radiograph CLINICAL HISTORY: POST OP COMPARISON: DI CHEST,SINGLE VIEW on DOS: 06/23/25 FINDINGS/IMPRESSION: Interval placement of right central venous catheter with tip projecting over the SVC. Possible opacity at the lung apices, suboptimally assessed. Consider CT in further assessment. The costophrenic angles are excluded from field of view. Mild right basilar opacity. Unchanged cardiomediastinal silhouette. No pneumothorax. No acute osseous abnormality.
[2025-06-26 20:31] LABS: MEAN PLATELET VOLUME 8.7 FL (7.4-10.4); RED CELL DISTRIBUTION WIDTH 13.1 % (11.5-14.5)
[2025-06-26 20:34] LABS: APTT 30 SECONDS (22-32); INR 1.1 INR
[2025-06-26 20:36] LABS: CREATININE 1.06 MG/DL (0.60-1.10); PHOSPHORUS 2.5 MG/DL (2.3-4.5); TOTAL CARBON DIOXIDE 25.4 MMOL/L (24-32); eCRCL 79 ML/MIN; eGFR 70 ML/MIN
[2025-06-26] MEDS: HYDROmorphone/PF 0.2 MG/ML SYRINGE IV PRN (20:38)
[2025-06-26] MEDS: Potassium Cl inj 20 MEQ in ringers solution, lacted 1,000 ML IV SCH (21:44)
[2025-06-26] MEDS: HYDROcodone/acetaminophen 10/325mg tab PO PRN (22:10)
[2025-06-27] VITALS (25 sets, daily range): BP systolic 105–163; BP diastolic 47–75; PULSE 65–89; RESP 11–21; TEMP 98.1–98.8; O2SAT 94–99
[2025-06-27] MEDS: ceFAZolin/D5W- 1GM premix 50 ML IV SCH (00:15)
[2025-06-27] MEDS: HYDROmorphone inj. 0.5 MG/0.5 ML DISP.SYRIN IV PRN (01:08)
--- NOTE | 2025-06-27 02:48 | OPERATIVE REPORT ---
DATE OF SURGERY: 06/26/2024 DICTATING PHYSICIAN: Pilo Jiang MD DATE OF OPERATION: 06/26/2024 PREOPERATIVE DIAGNOSIS: Nonhealing wound, right foot, with multiple peripheral vascular disease. POSTOPERATIVE DIAGNOSIS: Nonhealing wound, right foot, with multiple peripheral vascular disease. PROCEDURES PERFORMED: Right above-knee femoropopliteal bypass using 8-mm [employer]-Yo. Right common femoral endarterectomy. SURGEON: Pilo Jiang M.D. OPERATOR RECEPTIONIST: Dominik. ANESTHESIA: General/Dr. Dang. DRAINS: None. INDICATIONS FOR OPERATION: A 64-year-old male developed a nonhealing wound to the right foot and an LEISA of 0.56. CAT scan revealed an occluded SFA, and taken to surgery for a fem-pop bypass. INTRAOPERATIVE FINDINGS: Common femoral plaque. The popliteal was patent distally just above the knee. DESCRIPTION OF PROCEDURE: The patient was placed supine on the operating table. After induction of general anesthesia and placement of an endotracheal tube, the right lower extremity prepped and raped. After a timeout was performed, an incision was made in the medial aspect of the distal right knee. Popliteal artery identified and isolated just above the knee. Attention was then turned to the right groin, where a longitudinal incision was made. The femoral sheath was identified and incised. The common femoral, SFA, and profunda isolated. A tunnel was then created from the distal thigh to the groin in a subcutaneous location. An 8-mm [employer]Yo graft was then passed. The patient was heparinized with 7000 units of heparin. After a few minutes, the popliteal was occluded proximally and distally. An arteriotomy was made in the skin proximally and distally, and end-to-side anastomosis was constructed using running suture of 5-0 Prolene. The graft flushed well. probe was passed through the distal anastomosis brought out through the suture line. Attention was then turned to the right groin. The common femoral, SFA and profunda were occluded. Arteriotomy seen and extended proximally and distally. A right common femoral endarterectomy was then performed. The graft was then cut to length. An end-to-side anastomosis was constructed with a running suture of 5-0 Prolene. Flow was then reestablished to the right lower extremity. The patient had good flow in the posterior tibial beyond the graft. Hemostasis was then obtained. The wounds were then closed in layers. Skin was closed with clips. Dressing was applied. Prevena was placed in the right groin. The patient was transferred to the ICU in critical condition. Pilo Jiang MD TID: [id number] RECEIPT: [id number] KB/BAL
--- NOTE | 2025-06-27 03:58 | CONSULTATION ---
DATE OF CONSULTATION: 06/25/2025 DICTATING PHYSICIAN: Pilo Jiang MD REASON FOR CONSULTATION: Evaluation of right lower extremity PAD. HISTORY OF PRESENT ILLNESS: The patient is a 65-year-old male with a known history of peripheral vascular disease, type 2 diabetes, hypertension, and hyperlipidemia. He developed a nonhealing wound of his right foot. The patient was transferred from [facility] for further workup. The patient was told he had an occluded right SFA. On further questioning, rest pain, does have some complaints of claudication. He continues to smoke. He has a nonhealing wound of the right foot. No previous interventions of the right lower extremity. PAST MEDICAL HISTORY: Hypertension, hyperlipidemia, diabetes, peripheral neuropathy, PAD status post angioplasty of the left lower extremity, bipolar disorder, chronic pain, osteoarthritis. PAST SURGICAL HISTORY: Left lower extremity angioplasty, both hernia repair and hand repair. HOME MEDICATIONS: Glipizide, Plavix, hydrochlorothiazide, and Cozaar. ALLERGIES: ARIPIPRAZOLE. SOCIAL HISTORY: History of tobacco use. REVIEW OF SYSTEMS: Please see H and P. PHYSICAL EXAMINATION: GENERAL: He is well-nourished male, in no distress. VITAL SIGNS: Vital signs are unremarkable. HEART: Regular rate and rhythm. LUNGS: Clear to auscultation. ABDOMEN: Benign. EXTREMITIES: Right lower extremity has a nonhealing wound of the right foot. Pedal pulses are diminished. NEUROLOGIC: Motor function is intact. Sensation is diminished. LABORATORY DATA: Labs included WBC 5, hematocrit of 36, platelet count 229. Chemistries; BUN and creatinine 27 and 1. IMAGING STUDIES: CT scan reveals occlusion of the right SFA. ABIs noted to be 0.56 on the right and 0.84 on the left. IMPRESSION: * Multilevel peripheral arterial disease, nonhealing wound right foot. * Diabetes. * Hypertension. * Hyperlipidemia. * Status post angioplasty of the left lower extremity. * Diabetes. RECOMMENDATIONS: * Continue workup. * preop. * Lower extremity bypass. * No cardiac complications or surgical intervention. Pilo Jiang MD TID: [id number] RECEIPT: [id number] KB/DIV
[2025-06-27 05:33] LABS: MEAN PLATELET VOLUME 9.3 FL (7.4-10.4); RED CELL DISTRIBUTION WIDTH 13.3 % (11.5-14.5)
[2025-06-27 05:48] LABS: CREATININE 1.47 MG/DL (0.60-1.10); TOTAL CARBON DIOXIDE 25.8 MMOL/L (24-32); eCRCL 57 ML/MIN; eGFR 48 ML/MIN
[2025-06-27] MEDS: albuterol 2.5 MG/3 ML nebule NEB SCH (07:00)
[2025-06-27 07:58] LABS: PHOSPHORUS 3.2 MG/DL (2.3-4.5)
[2025-06-27] MEDS: docusate sod 100mg capsule PO PRN (08:48)
[2025-06-27] MEDS: ringers solution, lacted 1,000 ML IV SCH (09:04)
--- NOTE | 2025-06-27 10:17 | CONSULTATION REPORT - RESIDENT ---
Consult Providers to CC Resident Creating Document: NATACHANATACHA HARMONGARRY Ash, MANUEL History of Present Illness Reason for Admit\\Complaint: Right great toe osteomyelitis History of Present Illness 65-year-old male patient presented to the hospital transferred from [place] after being found with osteomyelitis in the level of the right big toe. The patient reports that he has noticed inflammation at the level of the right big toe but due to peripheral neuropathy he was not able to feel much pain. He also endorses some dark draining at the base of the right big toe. Denies any foul-smelling discharge. He endorses a similar episode of the level of the left be toe which was treated and currently healed with callus, as per patient this wound improved after he got angioplasty for peripheral arterial disease in the level of the left lower extremity. Noticeable the patient has a history of diabetes mellitus currently with a hemoglobin A1c of 6.9-reported as improved from 11. The patient also does have history of peripheral arterial disease, he just underwent right femoral above the knee pop bypass and ADJUSTER endarterectomy. Due to the presence of this wound and osteomyelitis we were consulted for further management of antibiotic therapy. Allergies: Coded Allergies: spinach (Verified Allergy, Intermediate, 06/23/25) Patient states, "Mimics a heart attack." aripiprazole (Verified Allergy, Mild, 06/23/25) Agitated behavior Home Medications Home Medications Active Reported Losartan Potassium 50 Mg Tablet 1 Tab PO BID Hydrochlorothiazide 25 Mg Tablet 1 Tab PO BID Glipizide 5 Mg Tablet 1 Tab PO Clopidogrel (Clopidogrel Bisulfate) 75 Mg Tablet 1 Tab PO DAILY Past Medical History Past Medical History Type 2 diabetes mellitus. Peripheral neuropathy. Hypertension. History of left big toe infection. Dyslipidemia. Peripheral arterial disease S/P left angioplasty on January. Bipolar disorder. BPH. Chronic low back pain. Osteoarthritis. Thyroid nodule. Past Surgical History Surgical History Comment S/p umbilical hernia repair surgery. Hand orthopedic surgery. Family History Family History: Patient reports no known family medical history. Exam Vitals: Vital Signs Date Time Temp Pulse Resp B/P (MAP) Pulse Ox O2 Delivery O2 Flow Rate FiO2 06/27/25 09:13 98.1 71 16 105/49 (67) 97 Nasal Cannula 1.0 Physical exam: General: Awake, alert, oriented. No acute distress. Well-developed, hydrated and well-built nourished. No anemia, Jaundice or clubbing. HEENT: Conjunctive are pink, sclerae clear, no icterus, pupil is equal in both sides, reactive to light, no ear discharge, no pharyngeal erythema or an edema. Neck: Supple, no adenopathy, thyromegaly. Trachea is midline. No JVD. Presence of central line in the level of the right side of the neck. Chest: Respiratory: Vesicular breath sounds. No ronchi, crepitus or wheezing. Resonance is normal upon percussion of all lung devine. Cardiovascular: S1-S2 regular sinus rhythm and, regular rate, no gallops, no rubs, no murmurs Abdomen: No visible distention, Bowel sounds present on auscultation, on palpation: soft, nontender, no guarding, no rigidity. Extremities: No obvious deformities, no pitting edema bilaterally, 1+ peripheral pulses in the level of the lower extremities. Presence of dermatitis stasis changes bilaterally in lower extremities. Genitourinary: Presence of Almanza catheter. Neurologic: Mental status: alert and conscious, oriented to place, person and time, preserved memory, normal speech. Cranial nerves I-XII: Normal. Motor system: Preserved power, coordination, no evidenced involuntary movements, strength 5/5 in four extremities. Sensory system: Diminished sensation in bilateral lower extremities. Preserved sensation to pain, vibration in bilateral upper extremities. 2+ deep tendon reflexes in biceps, triceps, quadriceps. Negative Babinski. Cerebellar: No nystagmus, dysdiadochokinesia, normal [id number] testing. Skin: Warm and dry. Diagnostic Data Last Recorded Lab Results: 06/27/25 0500 06/27/25 0500 Diagnostic Data: Laboratory Tests Test 06/26/25 19:52 Prothrombin Time 11.3 SECONDS (9.0-12.0) INR International Normalized Ratio 1.1 INR Activated Partial Thromboplast Time 30 SECONDS (22-32) Coagulation Comments Additional Plan Assessment and plan: 65-year-old male patient presented to the hospital transferred from [place] due to right great toe osteomyelitis. Right great toe osteomyelitis: The patient presented to the hospital transferred from [place] where the patient underwent MRI which showed osteomyelitis of the 1st proximal and distal phalanges of the right great toe. The patient has associated comorbidities as diabetes mellitus and peripheral arterial disease. Underwent right ADJUSTER endarterectomy and bypass (above the knee femoral-popliteal bypass) on 06/26/2025. Regarding the revascularization procedure which we will increase perfusion and will allow antibiotic to reach deeper tissue we will consider six week antibiotic therapy from 06/26/2025. The patient will require PICC line. Recommendations: Ceftriaxone 1 g IV daily and metronidazole 500 mg t.i.d. for six weeks counting from 06/26/2025. Other comorbidities: Diabetes mellitus, peripheral arterial disease, acute kidney injury, hypertension, thyroid nodule, bipolar disorder: Appropriately managed by primary team. Resident MD attestation: Patient was seen, examined and discussed with the attending MD, Dr. Heaton. Garry Portillo Internal Medicine Resident [facility] Date of Service: Jun 27, 2025 Billing Provider: NAYANA HEATON DO Addendum Patient was seen and examined with Dr. Angelina Portillo. Agree with the above assessment and plan. In brief, this is a 65 year old male with DM, PVD who ID is asked to see in consultation for R foot osteomyelitis. He was seen in the ICU today s/p revascularization. He lives with his sister and prefers to do IV therapy via home infusion. He has been on Rocephin and Flagyl empirically but this looks appropriate for his cultures which are reviewed in [facility]. 06/08 Wound- GNR, alpha Strep, CoNS, Anaerobes 06/20 Wound- Enterobacter, CoNS, Corynebacterium, Fingoldia GARRY GARDNER, RES Jun 27, 2025 10:17 NAYANA HEATON DO Jun 27, 2025 22:30
[2025-06-27 11:40] LABS: OSMOLALITY UA 478.0 MOSM/K (50-1400)
[2025-06-27 11:52] LABS: UA UREA RANDOM 547.0 MG/DL
[2025-06-27] MEDS ORDERED: glucagon, human recombinant 1mg kit SUBCUT PRN (12:05)
[2025-06-27] MEDS ORDERED: dextrose 50%-water 50ml dispensing syringe IV PRN ×2 (12:05)
[2025-06-27] MEDS ORDERED: DEXTROSE 15 GM of carb/4 tabs (each vial/BOTTLE has 4 tablets) PO PRN ×2 (12:05)
[2025-06-27] MEDS ORDERED: JUVEN Smoothie Arginine/Glut./Ca2+Bmb (Juven 19.3pkt) 240ml cup PO SCH (12:30)
[2025-06-27] MEDS: INSULIN LISPRO 100 UNIT/ML INSULN.PEN MULTI-DOSE SQ ONE (12:56)
[2025-06-27] MEDS ORDERED: albuterol 2.5 MG/3 ML nebule NEB PRN (14:50)
--- NOTE | 2025-06-27 15:32 | PROGRESS NOTE ---
Progress Note ID Providers to CC ~ Progress Note Progress Note: pain improving/vss/RLE well pefused/labs noted a/p 1. s/p RLE fem pop-doing well/transfer to floor KAYLAN MUNSON MD Jun 27, 2025 15:32
--- NOTE | 2025-06-27 17:18 | PROGRESS NOTE- Residence ---
Progress Note - Resident Providers to CC Resident Creating Document: MARYAM TREVIZO RES CC: ARACELI HOPSON MD ~ Antibiotic Timeout Antibiotic Ordered?: Yes Subjective Patient was seen and examined bedside. Patient underwent right CVA endarterectomy, right femoral above knee pop bypass yesterday, surgical dressings are in place. Patient stated that he is feeling better has no acute complaints today PCP: Dr. Jay, [place] Wound Dr: Dr. Paul Vascular Surgeon: DR. Kennedy , IR Objective Vital Signs Date Time Temp Pulse Resp B/P (MAP) Pulse Ox O2 Delivery O2 Flow Rate FiO2 06/27/25 15:47 81 19 117/59 (78) 96 Room Air 0.0 06/27/25 13:47 99.1 06/27/25 11:34 21 Result Diagram: 06/27/25 0500 06/27/25 0500 Awake , alert, and oriented x4, resting comfortably in the bed, in no acute distress HEENT: Atraumatic, normocephalic, EOMI, anicteric sclera ; pink conjunctiva, moist mucous membranes Neck: Trachea midline. Supple, full range of motion, no JVD, right central line place Cardiac: Regular rhythm, regular rate with no murmurs all over the precordium. Respiratory: Equal breath sounds bilaterally, no tachypnea, no wheezing ,rub or rales, Chest wall is symmetric and without deformity. Gastrointestinal: Abdomen symmetric, non-distended, soft, non-tender, normal bowel sounds, no hepatosplenomegaly Musculoskeletal: Dressing in place over right great toe with no soakage or drainage with normal surrounding skin, healing wound with callus present over plantar surface of left big toe, right-sided inguinal region dressing in place No pedal edema, no cyanosis,feeble peripheral pulses Neurological: Speech is clear, alert, and oriented x 4. No motor or sensory deficit, deep tendon reflexes normal, cerebellar intact. Cranial nerves II-XII intact. Skin: Warm and dry Coagulation Studies Laboratory Tests Test 06/26/25 19:52 Prothrombin Time 11.3 SECONDS (9.0-12.0) INR International Normalized Ratio 1.1 INR Activated Partial Thromboplast Time 30 SECONDS (22-32) Coagulation Comments Advance Care Planning Advanced Care plannin - 30 Minutes Assessment Assessment 65-year-old male with history of type 2 diabetes mellitus, peripheral neuropathy, hyperlipidemia, PAD s/p left angioplasty was transferred from [facility] for management of right great toe osteomyelitis, and he is getting surgery today for right SFA occlusion by Dr. Jiang Plan Plan Right SFA occlusion-status post right femoral artery above the knee popliteal bypass and right common femoral artery endarterectomy 06/26/25 PAD s/p left angioplasty in January 2025 Tobacco use disorder Patient is active smoker (pt had cut down smoking to 5-6 cigarettes/day from 1 pack of cigarettes/day) LDL is 47 CT angio of lower extremity which showed long segment right SFA occlusion . Arterial ultrasound shows occlusion of the right SFA in the mid to upper thigh with reconstitution in the distal thigh, likely greater than 50% stenosis in the right profunda femoris artery, greater than 50% stenosis in the distal left SFA. Venous ultrasound shows moderately depressed LEISA bilaterally, right worse than left Right LEISA 0.56 Left LEISA 0.84 Stress test shows no reversible ischemia. Echo shows LVEF of 55-60%, mildly dilated RV and LA, mild mitral regurgitation and trace tricuspid regurgitation Plan Continue atorvastatin 20 mg, new home medications clopidogrel 75 mg daily Right great toe osteomyelitis (1st proximal and distal phalanges of great toe) Right great toe diabetic ulcer Imaging at [facility] on 06/14/25: X-ray right foot consistent with cellulitis, no evidence of osteomyelitis, patient was treated with p.o. Augmentin & doxycycline, failed outpatient management and patient returned to [place] [facility] on 06/23/25, underwent MRI which showed osteomyelitis of 1st proximal and distal phalanges of right great toe. Preliminary wound cultures showed no WBC and no organisms Inflammatory markers show normal Plan Infectious disease recommended, ceftriaxone 1 g IV daily and metronidazole 500 mg t.i.d. for six weeks from 06/26/2025 Discontinued vancomycin Wound care consult in place Type 2 diabetes mellitus with the complicated peripheral neuropathy Patient takes glipizide at home,HB A1c is 6.9 Blood glucose goal of 140-180 Patient feels drowsy with gabapentin, So does not want any medication for peripheral neuropathy. Continue 75 gms Carb controlled diet; increase Lantus to 13 units and lispro 4 units t.i.d. with meals Continue hyperglycemia hypoglycemic moderate protocol Acute kidney injury Likely prerenal from dehydration leading to vasomotor nephropathy Elevated creatinine kinase to 1.47, continue lactated ringer at 100 mL/hour Avoid nephrotoxic drugs Monitor BMP levels Hypertension Patient had few soft blood pressure readings today Continue losartan 100 mg daily and hydrochlorothiazide 25 mg p.o. daily We will decrease patient's losartan to 75 mg if his blood pressure continues to be soft Thyroid nodule TSH is in normal limit 2.43 Patient has outpatient appointment for thyroid nodule biopsy next month History of bipolar disorder Patient states that he does not have any episodes from many years and he is not taking any medications at home. Code status: DNR/DNI DVT prophylaxis : Heparin Nutrition: Carb Controlled diet Physical therapy: ordered Line/tube: PIV Analgesia/sedation: Tylenol 325 q.6h PRN Disposition: We will continue to monitor the patient once patient is transferred to floors, patient would require PICC line placement tomorrow, discharge plan as per Dr. Jo Resident attestation: The patient note has been reviewed and supervised by senior residents PGY-2/ PGY-3. Patient was seen, examined and discussed with attending physician, Dr. Tani Trevizo MD Internal Medicine resident, PGY-1 Date of Service: Jun 27, 2025 Billing Provider: ARACELI HOPSON MD Common Visit Codes: [id number] INP/OBS CARE(HIGH) MARYAM TREVIZO, RES Jun 27, 2025 17:17 ARACELI HOPSON MD Jul 04, 2025 18:28
[2025-06-27] MEDS: JUVEN Smoothie Arginine/Glut./Ca2+Bmb (Juven 19.3pkt) 240ml cup PO SCH (17:37)
[2025-06-27] MEDS: INSULIN LISPRO 100 UNIT/ML INSULN.PEN MULTI-DOSE SQ SCH (17:44)
--- OUTSIDE RECORDS SUMMARY | 2025-06-27 18:04 | XMS REPORT | Clinical Summary ---
Author Author Pilo Jiang M.D. [facility] Pilo Jiang M.D. Address [address] [place] [address] [address] [place] [id number] Phone Assessment and Plan No Plans indicated Functional Status No Information Mental status No Information Immunizations No Immunization History Medical Equipment No Information Reason for Referral No Reason for Referral Indicated Social History Sex: M
[2025-06-27] MEDS: insulin glargine (Lantus) pen - multi-dose SQ SCH (21:32)
[2025-06-28] VITALS (10 sets, daily range): BP systolic 132–173; BP diastolic 57–77; PULSE 75–85; RESP 14–20; TEMP 97.1–98.8; O2SAT 92–97
[2025-06-28 05:03] LABS: MEAN PLATELET VOLUME 9.0 FL (7.4-10.4); RED CELL DISTRIBUTION WIDTH 13.5 % (11.5-14.5)
[2025-06-28 05:16] LABS: CREATININE 1.34 MG/DL (0.60-1.10); PHOSPHORUS 2.6 MG/DL (2.3-4.5); TOTAL CARBON DIOXIDE 28.3 MMOL/L (24-32); eCRCL 62 ML/MIN; eGFR 53 ML/MIN
[2025-06-28] MEDS: CefTRIAXone 2gm/D5W 50ml BAG 50 ML IV SCH (07:32)
[2025-06-28 10:21] LABS: % IRON SATURATION 9 % (11-46)
[2025-06-28] MEDS: hydrALAZINE 20mg/ml inj. IV PRN (12:19)
--- NOTE | 2025-06-28 13:14 | PROGRESS NOTE- Residence ---
Progress Note - Resident Providers to CC Resident Creating Document: NORA FAUSTINOGARRY Ash, RES ~ Antibiotic Timeout Antibiotic Ordered?: Yes Subjective The patient has been evaluated at bedside. The patient reports pain 6/10 at the level of the surgical area well controlled with pain medication. Objective Vital Signs Date Time Temp Pulse Resp B/P (MAP) Pulse Ox O2 Delivery O2 Flow Rate FiO2 06/28/25 12:19 86 06/28/25 11:15 18 06/28/25 08:00 94 Room Air 06/28/25 06:46 98.7 169/77 (107) 06/27/25 19:16 0 21 Physical exam: General: Awake, alert, oriented. No acute distress. Well-developed, hydrated and well-built nourished. No anemia, Jaundice or clubbing. HEENT: Conjunctive are pink, sclerae clear, no icterus, pupil is equal in both sides, reactive to light, no ear discharge, no pharyngeal erythema or an edema. Neck: Supple, no adenopathy, thyromegaly. Trachea is midline. No JVD. Presence of central line in the level of the right side of the neck. Chest: Respiratory: Vesicular breath sounds. No ronchi, crepitus or wheezing. Resonance is normal upon percussion of all lung devine. Cardiovascular: S1-S2 regular sinus rhythm and, regular rate, no gallops, no rubs, no murmurs Abdomen: No visible distention, Bowel sounds present on auscultation, on palpation: soft, nontender, no guarding, no rigidity. Extremities: No obvious deformities, no pitting edema bilaterally, 1+ peripheral pulses in the level of the lower extremities. Presence of dermatitis stasis changes bilaterally in lower extremities. Presence of clean dressing at the level of the right thigh. Neurologic: Mental status: alert and conscious, oriented to place, person and time, preserved memory, normal speech. Strength 5/5 in four extremities. Sensory system: Diminished sensation in bilateral lower extremities. Skin: Warm and dry. Result Diagram: 06/28/25 0434 06/28/25 0434 Coagulation Studies Laboratory Tests Test 06/26/25 19:52 Prothrombin Time 11.3 SECONDS (9.0-12.0) INR International Normalized Ratio 1.1 INR Activated Partial Thromboplast Time 30 SECONDS (22-32) Coagulation Comments Assessment Assessment 65-year-old male patient presented to the hospital transferred from [place] due to right great toe osteomyelitis. Plan Plan Right great toe osteomyelitis: The patient presented to the hospital transferred from [place] due to osteomyelitis the level of the right great toe confirmed with the MRI. 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 Wound Cultures obtained in [facility] showed 06/08 Wound- GNR, alpha Strep, CoNS, Anaerobes and on 06/20 Wound- Enterobacter, CoNS, Corynebacterium, Fingoldia Recommendations: Continue Ceftriaxone 2 g IV daily and metronidazole 500 mg t.i.d. to be stopped on August 01, 2024. Other comorbidities: Diabetes mellitus, peripheral arterial disease, acute kidney injury, hypertension, thyroid nodule, bipolar disorder: Appropriately managed by primary team. Resident MD attestation: Patient was seen, examined and discussed with the attending MD, Dr. Simpson. Garry Portillo Internal Medicine Resident [facility] Date of Service: Jun 28, 2025 Billing Provider: KASHIF SIMPSON MD Addendum Agree with above note. Patient seen and examined with Dr. Portillo. Continue ceftriaxone and metronidazole for osteomyelitis of right foot following revascularization. GARRY GARDNER, RES Jun 28, 2025 13:14 KASHIF SIMPSON MD Jun 28, 2025 17:26
--- NOTE | 2025-06-28 16:21 | PROGRESS NOTE ---
Progress Note ID Providers to CC ~ Progress Note Progress Note: complains of pain/vss/RLE-well perfused/labs noted a/p 1. s/p fem pop-doing well/cont pt KAYLAN MUNSON MD Jun 28, 2025 16:20
--- NOTE | 2025-06-28 16:40 | PROGRESS NOTE- Residence ---
Progress Note - Resident Providers to CC Resident Creating Document: MARYAM TREVIZO RES CC: ARACELI HOPSON MD ~ Antibiotic Timeout Antibiotic Ordered?: Yes Subjective The patient has been evaluated at bedside. He stated that he is feeling better, rated the pain five on 10. Discussed with the patient regarding possibility of rehab, patient stated that he wants to go back home. He lives in his house with his sister Objective Vital Signs Date Time Temp Pulse Resp B/P (MAP) Pulse Ox O2 Delivery O2 Flow Rate FiO2 06/28/25 16:02 81 14 92 Room Air* 0 21 06/28/25 15:17 159/72 (101) 06/28/25 10:00 98.8 Result Diagram: 06/28/25 0434 06/28/25 0434 Awake , alert, and oriented x4, resting comfortably in the bed, in no acute distress HEENT: Atraumatic, normocephalic, EOMI, anicteric sclera ; pink conjunctiva, moist mucous membranes Neck: Trachea midline. Supple, full range of motion, no JVD, Cardiac: Regular rhythm, regular rate with no murmurs all over the precordium. Respiratory: Equal breath sounds bilaterally, no tachypnea, no wheezing ,rub or rales, Chest wall is symmetric and without deformity. Gastrointestinal: Abdomen symmetric, non-distended, soft, non-tender, normal bowel sounds, no hepatosplenomegaly Musculoskeletal: Dressing in place over right great toe with no soakage or drainage with normal surrounding skin, healing wound with callus present over plantar surface of left big toe, right-sided inguinal region dressing in place No pedal edema, no cyanosis,feeble peripheral pulses, new PICC line placed today Neurological: Speech is clear, alert, and oriented x 4. No motor or sensory deficit, deep tendon reflexes normal, cerebellar intact. Cranial nerves II-XII intact. Skin: Warm and dry Coagulation Studies Laboratory Tests Test 06/26/25 19:52 Prothrombin Time 11.3 SECONDS (9.0-12.0) INR International Normalized Ratio 1.1 INR Activated Partial Thromboplast Time 30 SECONDS (22-32) Coagulation Comments Advance Care Planning Advanced Care plannin - 30 Minutes Assessment Assessment 65-year-old male patient presented to the hospital transferred from [place] due to right great toe osteomyelitis. Plan Plan Right SFA occlusion-status post right femoral artery above the knee popliteal bypass and right common femoral artery endarterectomy 06/26/25 PAD s/p left angioplasty in January 2025 Tobacco use disorder Patient is active smoker (pt had cut down smoking to 5-6 cigarettes/day from 1 pack of cigarettes/day) LDL is 47 CT angio of lower extremity which showed long segment right SFA occlusion . Arterial ultrasound shows occlusion of the right SFA in the mid to upper thigh with reconstitution in the distal thigh, likely greater than 50% stenosis in the right profunda femoris artery, greater than 50% stenosis in the distal left SFA. Venous ultrasound shows moderately depressed LEISA bilaterally, right worse than left Right LEISA 0.56 Left LEISA 0.84 Stress test shows no reversible ischemia. Echo shows LVEF of 55-60%, mildly dilated RV and LA, mild mitral regurgitation and trace tricuspid regurgitation Plan Continue atorvastatin 20 mg, new home medications clopidogrel 75 mg daily Right great toe osteomyelitis (1st proximal and distal phalanges of great toe) Right great toe diabetic ulcer Imaging at [facility] on 06/14/25: X-ray right foot consistent with cellulitis, no evidence of osteomyelitis, patient was treated with p.o. Augmentin & doxycycline, failed outpatient management and patient returned to [place] ER on 06/23/25, underwent MRI which showed osteomyelitis of 1st proximal and distal phalanges of right great toe. Preliminary wound cultures showed no WBC and no organisms Inflammatory markers show normal Wound cultures obtained by infectious disease team from [facility] reported 06/08 Wound- GNR, alpha Strep, CoNS, Anaerobes and on 06/20 Wound- Enterobacter, CoNS, Corynebacterium, Fingoldia Plan Infectious disease recommended, ceftriaxone 1 g IV daily and metronidazole 500 mg t.i.d. for six weeks from 06/26/2025 Discontinued vancomycin Wound care consult in place Type 2 diabetes mellitus with the complicated peripheral neuropathy Patient takes glipizide at home,HB A1c is 6.9 Blood glucose goal of 140-180 Patient feels drowsy with gabapentin, So does not want any medication for peripheral neuropathy. Continue 75 gms Carb controlled diet; increase patient's Lantus to 20 units and lispro 4 units t.i.d. with meals Continue hyperglycemia hypoglycemic moderate protocol Anemia of chronic disease Patient's hemoglobin low at 9.7, MCV normal, iron low at 15, TIBC low at 165, %saturation low at 9, ferritin normal at 269 Continue to monitor H and H Acute kidney injury Likely prerenal from dehydration leading to vasomotor nephropathy Downtrending creatinine, continue lactated ringer at 100 mL/hour Avoid nephrotoxic drugs Monitor BMP levels Hypertension Patient had few soft blood pressure readings today Continue losartan 100 mg daily and hydrochlorothiazide 25 mg p.o. daily Thyroid nodule TSH is in normal limit 2.43 Patient has outpatient appointment for thyroid nodule biopsy next month History of bipolar disorder Patient states that he does not have any episodes from many years and he is not taking any medications at home. Code status: DNR/DNI DVT prophylaxis : Heparin Nutrition: Carb Controlled diet Physical therapy: ordered Line/tube: PIV Analgesia/sedation: Tylenol 325 q.6h PRN Disposition: We will continue to monitor the patient once patient is transferred to floors, PICC line, has been placed discharge plan as per Dr. Jo Resident MD attestation: The patient note has been reviewed and supervised by senior residents PGY-2/ PGY-3. Patient was seen, examined and discussed with attending physician, Dr. Tani Trevizo MD Internal Medicine resident, PGY-1 Date of Service: Jun 28, 2025 Billing Provider: ARACELI HOPSON MD Common Visit Codes: [id number] INP/OBS CARE(HIGH) MARYAM TREVIZO, RES Jun 28, 2025 16:40 ARACELI HOPSON MD Jul 04, 2025 18:29
--- NOTE | 2025-06-28 18:46 | PATHOLOGY REPORT ---
[facility] [address] [place] [address] SURGICAL PATHOLOGY REPORT CaseNumber: [id number] Surgeon:Viviane Guaman CLINICAL INFORMATION CLINICAL INFORMATION: Right femoral plaque. DIAGNOSIS DIAGNOSIS: ARTERY, RIGHT FEMORAL; ENDARTERECTOMY - ATHEROSCLEROTIC PLAQUE, GROSSLY IDENTIFIED. MICROSCOPIC DESCRIPTION MICROSCOPIC DESCRIPTION: Not performed. (st) GROSS DESCRIPTION GROSS DESCRIPTION: Received in a container of formalin labeled with the patient's name, number, and "right femoral plaque" is a 2.5 x 2.5 x 0.7 cm aggregate of moderately calcified atherosclerotic plaque. A thrombus is not identified. No sections. (meb) Electronically signed by: Danny Cruz M.D. 06/28/2025 6:12:00 PM
[2025-06-28] MEDS: insulin glargine (Lantus) pen - multi-dose SQ SCH (21:10)
[2025-06-29 05:02] LABS: MEAN PLATELET VOLUME 9.0 FL (7.4-10.4); RED CELL DISTRIBUTION WIDTH 13.6 % (11.5-14.5)
[2025-06-29 05:28] LABS: CREATININE 1.10 MG/DL (0.60-1.10); PHOSPHORUS 2.3 MG/DL (2.3-4.5); TOTAL CARBON DIOXIDE 27.8 MMOL/L (24-32); eCRCL 76 ML/MIN; eGFR 67 ML/MIN
[2025-06-29 06:30] VITALS: BP 149/64; PULSE 73; RESP 16; TEMP 98.7; O2SAT 94
[2025-06-29] MEDS: ketorolac trometh 15mg/ml vial 15 MG/ML ML IV ONE (10:09)
--- NOTE | 2025-06-29 12:20 | PROGRESS NOTE- Residence ---
Progress Note - Resident Providers to CC Resident Creating Document: ANGELINA FAUSTINOGARRY Ash, MANUEL ~ Antibiotic Timeout Antibiotic Ordered?: Yes Subjective The patient has been evaluated at the bedside. The patient reports some pain in the right lower extremity. Objective Vital Signs Date Time Temp Pulse Resp B/P (MAP) Pulse Ox O2 Delivery O2 Flow Rate FiO2 06/29/25 10:09 16 06/29/25 08:00 Room Air 0.0 21 06/29/25 07:43 73 06/29/25 06:30 98.7 149/64 (92) 94 Physical exam: General: Awake, alert, oriented. No acute distress. Well-developed, hydrated and well-built nourished. No anemia, Jaundice or clubbing. HEENT: Conjunctive are pink, sclerae clear, no icterus, pupil is equal in both sides, reactive to light, no ear discharge, no pharyngeal erythema or an edema. Neck: Supple, no adenopathy, thyromegaly. Trachea is midline. No JVD. Chest: Respiratory: Vesicular breath sounds. No ronchi, crepitus or wheezing. Resonance is normal upon percussion of all lung devine. Cardiovascular: S1-S2 regular sinus rhythm and, regular rate, no gallops, no rubs, no murmurs Abdomen: No visible distention, Bowel sounds present on auscultation, on palpation: soft, nontender, no guarding, no rigidity. Extremities: No obvious deformities, no pitting edema bilaterally, 1+ peripheral pulses in the level of the lower extremities. Presence of dermatitis stasis changes bilaterally in lower extremities. Presence of clean dressing at the level of the right thigh. Neurologic: Mental status: alert and conscious, oriented to place, person and time, preserved memory, normal speech. Strength 5/5 in four extremities. Sensory system: Diminished sensation in bilateral lower extremities. Skin: Warm and dry. Result Diagram: 06/29/25 0448 06/29/25 0448 Coagulation Studies Laboratory Tests Test 06/26/25 19:52 Prothrombin Time 11.3 SECONDS (9.0-12.0) INR International Normalized Ratio 1.1 INR Activated Partial Thromboplast Time 30 SECONDS (22-32) Coagulation Comments Assessment Assessment 65-year-old male patient presented to the hospital transferred from [place] due to right great toe osteomyelitis. Plan Plan Right great toe osteomyelitis: The patient presented to the hospital transferred from [place] due to osteomyelitis the level of the right great toe confirmed with the MRI. 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 Wound Cultures obtained in [place] showed 06/08 Wound- GNR, alpha Strep, CoNS, Anaerobes and on 06/20 Wound- Enterobacter, CoNS, Corynebacterium, Fingoldia. The patient agreeable to go to rehab service, pending rehab placement at this time which convenient for his antibiotic therapy requirement. Recommendations: Continue Ceftriaxone 2 g IV daily and metronidazole 500 mg t.i.d. to be stopped on August 08, 2024. We will sign off this patient. Please feel free to reach out if any questions or concerns. Other comorbidities: Diabetes mellitus, peripheral arterial disease, acute kidney injury, hypertension, thyroid nodule, bipolar disorder: Appropriately managed by primary team. Resident MD attestation: Patient was seen, examined and discussed with the attending MD, Dr. Heaton. Garry Portillo Internal Medicine Resident [facility] Date of Service: Jun 29, 2025 Billing Provider: NAYANA HEATON DO Addendum Patient seen and examined with Dr. Angelina Portillo. Agree with the above assessment and plan. Patient is planning on going to SNF to finish up his antibiotic course until 08/07/25 GARRY GARDNER, RES Jun 29, 2025 12:20 NAYANA HEATON DO Jun 29, 2025 22:45
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
--- NOTE | 2025-06-29 14:22 | PROGRESS NOTE ---
Progress Note ID Providers to CC ~ Progress Note Progress Note: doing well/rehab thursday KAYLAN MUNSON MD Jun 29, 2025 14:22
[2025-06-29 17:36] VITALS: PULSE 72; RESP 16; O2SAT 97
[2025-06-29 18:00] VITALS: BP 135/68; PULSE 68; RESP 16; TEMP 98.6; O2SAT 98
--- NOTE | 2025-06-29 18:32 | PROGRESS NOTE- Residence ---
Progress Note - Resident Providers to CC Resident Creating Document: MARYAM TREVIZO RES CC: ARACELI HOPSON MD ~ Antibiotic Timeout Antibiotic Ordered?: Yes Subjective The patient has been evaluated at the bedside. The patient reports some pain in the right lower extremity, patient worked with Physical therapy and they recommended post-acute care. Patient agreed for rehab, manager case secured a place with the patient at [facility]. said it was okay for the patient to get discharged tomorrow Objective Vital Signs Date Time Temp Pulse Resp B/P (MAP) Pulse Ox O2 Delivery O2 Flow Rate FiO2 06/29/25 17:36 72 16 97 Room Air* 0 21 06/29/25 06:30 98.7 149/64 (92) Result Diagram: 06/29/25 0448 06/29/25 0448 Awake , alert, and oriented x4, resting comfortably in the bed, in no acute distress HEENT: Atraumatic, normocephalic, EOMI, anicteric sclera ; pink conjunctiva, moist mucous membranes Neck: Trachea midline. Supple, full range of motion, no JVD, Cardiac: Regular rhythm, regular rate with no murmurs all over the precordium. Respiratory: Equal breath sounds bilaterally, no tachypnea, no wheezing ,rub or rales, Chest wall is symmetric and without deformity. Gastrointestinal: Abdomen symmetric, non-distended, soft, non-tender, normal bowel sounds, no hepatosplenomegaly Musculoskeletal: Dressing in place over right great toe with no soakage or drainage with normal surrounding skin, healing wound with callus present over plantar surface of left big toe, right-sided inguinal region dressing in place No pedal edema, no cyanosis,feeble peripheral pulses, new PICC line placed today Neurological: Speech is clear, alert, and oriented x 4. No motor or sensory deficit, deep tendon reflexes normal, cerebellar intact. Cranial nerves II-XII intact. Skin: Warm and dry Coagulation Studies Laboratory Tests Test 06/26/25 19:52 Prothrombin Time 11.3 SECONDS (9.0-12.0) INR International Normalized Ratio 1.1 INR Activated Partial Thromboplast Time 30 SECONDS (22-32) Coagulation Comments Advance Care Planning Advanced Care plannin - 30 Minutes Assessment Assessment 65-year-old male patient presented to the hospital transferred from [place] due to right great toe osteomyelitis. Plan Plan Right SFA occlusion-status post right femoral artery above the knee popliteal bypass and right common femoral artery endarterectomy 06/26/25 PAD s/p left angioplasty in January 2025 Tobacco use disorder Patient is active smoker (pt had cut down smoking to 5-6 cigarettes/day from 1 pack of cigarettes/day) LDL is 47 CT angio of lower extremity which showed long segment right SFA occlusion . Arterial ultrasound shows occlusion of the right SFA in the mid to upper thigh with reconstitution in the distal thigh, likely greater than 50% stenosis in the right profunda femoris artery, greater than 50% stenosis in the distal left SFA. Venous ultrasound shows moderately depressed LEISA bilaterally, right worse than left Right LEISA 0.56 Left LEISA 0.84 Stress test shows no reversible ischemia. Echo shows LVEF of 55-60%, mildly dilated RV and LA, mild mitral regurgitation and trace tricuspid regurgitation Plan Continue atorvastatin 20 mg, new home medications clopidogrel 75 mg daily Right great toe osteomyelitis (1st proximal and distal phalanges of great toe) Right great toe diabetic ulcer Imaging at [facility] on 06/14/25: X-ray right foot consistent with cellulitis, no evidence of osteomyelitis, patient was treated with p.o. Augmentin & doxycycline, failed outpatient management and patient returned to [place] [facility] on 06/23/25, underwent MRI which showed osteomyelitis of 1st proximal and distal phalanges of right great toe. Preliminary wound cultures showed no WBC and no organisms Inflammatory markers show normal Wound cultures obtained by infectious disease team from [facility] reported 06/08 Wound- GNR, alpha Strep, CoNS, Anaerobes and on 06/20 Wound- Enterobacter, CoNS, Corynebacterium, Fingoldia Plan Infectious disease recommended, ceftriaxone 1 g IV daily and metronidazole 500 mg t.i.d. for six weeks from 06/26/2025 Discontinued vancomycin Wound care consult in place Type 2 diabetes mellitus with the complicated peripheral neuropathy Patient takes glipizide at home,HB A1c is 6.9 Blood glucose goal of 140-180 Patient feels drowsy with gabapentin, So does not want any medication for peripheral neuropathy. Continue 75 gms Carb controlled diet; increase patient's Lantus to 20 units and lispro 4 units t.i.d. with meals Continue hyperglycemia hypoglycemic moderate protocol Anemia of chronic disease Patient's hemoglobin low at 9.7, MCV normal, iron low at 15, TIBC low at 165, %saturation low at 9, ferritin normal at 269 Continue to monitor H and H Acute kidney injury Likely prerenal from dehydration leading to vasomotor nephropathy Downtrending creatinine, continue lactated ringer at 100 mL/hour Avoid nephrotoxic drugs Monitor BMP levels Hypertension Patient had few soft blood pressure readings today Continue losartan 100 mg daily and hydrochlorothiazide 25 mg p.o. daily Thyroid nodule TSH is in normal limit 2.43 Patient has outpatient appointment for thyroid nodule biopsy next month History of bipolar disorder Patient states that he does not have any episodes from many years and he is not taking any medications at home. Code status: DNR/DNI DVT prophylaxis : Heparin Nutrition: Carb Controlled diet Physical therapy: ordered Line/tube: PIV Analgesia/sedation: Tylenol 325 q.6h PRN Disposition: Patient will get discharged tomorrow to [facility] rehab, he will undergo infusions for antibiotics. Patient has a PICC line in place Resident MD attestation: The patient note has been reviewed and supervised by senior residents PGY-2/ PGY-3. Patient was seen, examined and discussed with attending physician, Dr. Tani Trevizo MD Internal Medicine resident, PGY-1 Date of Service: Jun 29, 2025 Billing Provider: ARACELI HOPSON MD Common Visit Codes: [id number] INP/OBS CARE(HIGH) MARYAM TREVIZO, RES Jun 29, 2025 18:32 ARACELI HOPSON MD Jul 04, 2025 18:29
[2025-06-29 22:00] VITALS: BP 147/66; PULSE 74; RESP 14; TEMP 98.5; O2SAT 96
[2025-06-30 04:25] VITALS: PULSE 70; RESP 16; O2SAT 96
[2025-06-30 04:56] LABS: MEAN PLATELET VOLUME 9.0 FL (7.4-10.4); RED CELL DISTRIBUTION WIDTH 13.8 % (11.5-14.5)
[2025-06-30 05:13] LABS: CREATININE 1.34 MG/DL (0.60-1.10); PHOSPHORUS 2.7 MG/DL (2.3-4.5); TOTAL CARBON DIOXIDE 29.8 MMOL/L (24-32); eCRCL 62 ML/MIN; eGFR 53 ML/MIN
[2025-06-30 06:47] VITALS: BP 155/69; PULSE 72; RESP 16; TEMP 98.4; O2SAT 97
[2025-06-30] MEDS: ringers solution, lacted 1,000 ML IV SCH (07:30)
[2025-06-30 10:47] VITALS: BP 132/58; PULSE 73; RESP 14; TEMP 97.7; O2SAT 95
[2025-06-30 11:23] VITALS: RESP 16
== END 2025-06-30 12:00 | DRG 252 ==
LOC: EDBD 15:08 → ORTHO 4S 15:08 → CICU 2S 06-26 15:57 → SUR 3N 06-27 19:57
PROVIDERS: ADMIT Family Medicine; ATTEND Family Medicine
PROC: B4201ZZ Computerized Tomography (CT Scan) of Abdominal Aorta using Low Osmolar Contrast (ICD-10-PCS; 2025-06-25)
PROC: B4241ZZ Computerized Tomography (CT Scan) of Superior Mesenteric Artery using Low Osmolar Contrast (ICD-10-PCS; 2025-06-25)
PROC: B4281ZZ Computerized Tomography (CT Scan) of Bilateral Renal Arteries using Low Osmolar Contrast (ICD-10-PCS; 2025-06-25)
PROC: B42C1ZZ Computerized Tomography (CT Scan) of Pelvic Arteries using Low Osmolar Contrast (ICD-10-PCS; 2025-06-25)
PROC: B42H1ZZ Computerized Tomography (CT Scan) of Bilateral Lower Extremity Arteries using Low Osmolar Contrast (ICD-10-PCS; 2025-06-25)
PROC: B4211ZZ Computerized Tomography (CT Scan) of Celiac Artery using Low Osmolar Contrast (ICD-10-PCS; 2025-06-25)
PROC: B42H1ZZ Computerized Tomography (CT Scan) of Bilateral Lower Extremity Arteries using Low Osmolar Contrast (ICD-10-PCS; 2025-06-25)
PROC: 04CK0ZZ Extirpation of Matter from Right Femoral Artery, Open Approach (ICD-10-PCS; 2025-06-26)
PROC: 4A02XM4 Measurement of Cardiac Total Activity, External Approach (ICD-10-PCS; 2025-06-26)
PROC: 3E033HZ Introduction of Radioactive Substance into Peripheral Vein, Percutaneous Approach (ICD-10-PCS; 2025-06-26)
PROC: 041K0JL Bypass Right Femoral Artery to Popliteal Artery with Synthetic Substitute, Open Approach (ICD-10-PCS; principal; 2025-06-26 16:31)
DX: E11.51 Type 2 diabetes mellitus with diabetic peripheral angiopathy without gangrene (principal); N17.0 Acute kidney failure with tubular necrosis; Z66 Do not resuscitate; M86.8X7 Other osteomyelitis, ankle and foot; E11.621 Type 2 diabetes mellitus with foot ulcer; I10 Essential (primary) hypertension; F31.9 Bipolar disorder, unspecified; E11.69 Type 2 diabetes mellitus with other specified complication; E78.5 Hyperlipidemia, unspecified; E66.3 Overweight; E11.42 Type 2 diabetes mellitus with diabetic polyneuropathy; F17.210 Nicotine dependence, cigarettes, uncomplicated; Z79.84 Long term (current) use of oral hypoglycemic drugs; Z79.899 Other long term (current) drug therapy; Z68.28 Body mass index [BMI] 28.0-28.9, adult
CPT/HCPCS: 36415; 71045; 75635; 76942; 78452; 80053; 80061; 80202; 80305; 81001; 82570; 82728; 82947; 82948; 83036; 83540; 83550; 83605; 83735; 83930; 83935; 84100; 84145; 84300; 84443; 84540; 85025; 85610; 85651; 85730; 86885; 86900; 86901; 86920; 87040; 87070; 87075; 87081; 87207; 88300; 93017; 93306; 93922; 93925; 93970; 94640; 94760; 97116; 97161; 97530; A4615; A4618; A4620; A6213; A6258; A6266; A6449; A6455; A9500; C1751; C1758; C1768; G0378; J0360; J0690; J0696; J1100; J1171; J1644; J1815; J1885; J2003; J2250; J2274; J2405; J2704; J2720; J2785; J3010; J3373; J3480; J3490; J7030; J7040; J7050; J7120; P9045; Q9967